=== PATIENT | male | born 1985 | race Caucasian/White ===

== ENCOUNTER 2022-10-22 19:16 | Emergency (ER) | payer BC, OTHER ==
[2022-10-22 19:31] VITALS: BP 117/78; PULSE 64; RESP 16; TEMP 98.7; BMI 26.2
[2022-10-22] MEDS ORDERED: GLUCAGON 1 MG KIT IVPUSH ONE (19:40)
[2022-10-22] MEDS ORDERED: GLUCAGON 1 MG KIT ONE (19:41)
[2022-10-22] MEDS ORDERED: ONDANSETRON 4 MG/2 ML VIAL IVPB ONE (19:59)
[2022-10-22] MEDS ORDERED: ONDANSETRON 4 MG/2 ML VIAL ONE (19:59)
== END 2022-10-22 20:40 | disposition home or self-care (01) ==
LOC: FER 19:16
PROC: 3E033GC Introduction of Other Therapeutic Substance into Peripheral Vein, Percutaneous Approach (ICD-10-PCS; principal; 2022-10-22)
PROC: 3E033GC Introduction of Other Therapeutic Substance into Peripheral Vein, Percutaneous Approach (ICD-10-PCS; 2022-10-22)
DX: T18.128A Food in esophagus causing other injury, initial encounter (principal)
CPT/HCPCS: 99284-25